=== PATIENT | female | born 1990 | race Caucasian/White ===

== ENCOUNTER → 2019-03-07 | Day surgery (SDC) | payer OTHER ==
[~2019-03-07] MED LIST: BUPIVACAINE 0.5% 30 ML SDV ONE; LIDOCAINE 1% 5 ML SDV ONE
== END | disposition home or self-care (01) ==
LOC: FIMAGING 07:18
PROVIDERS: ATTEND Radiology Diagnostic Radiology
PROC: BH00ZZZ Plain Radiography of Right Breast (ICD-10-PCS; principal; 2019-03-07)
PROC: 0HBT3ZX Excision of Right Breast, Percutaneous Approach, Diagnostic (ICD-10-PCS; principal; 2019-03-07)
DX: R92.1 Mammographic calcification found on diagnostic imaging of breast (principal); Z80.3 Family history of malignant neoplasm of breast